=== PATIENT | female | born 1980 | race Two or more races ===

== ENCOUNTER 2018-06-30 17:33 | Emergency (ER) | payer OTHER ==
[~2018-06-30] VITALS: Ht 162.6 cm; Wt 67.7 kg
[~2018-06-30 17:33] MED LIST: NONE PER PT
[2018-06-30 17:37] VITALS: BP 127/95
== END 2018-06-30 18:38 | disposition home or self-care (01) ==
LOC: ED 18:27
DX: S16.1XXA Strain of muscle, fascia and tendon at neck level, initial encounter (principal); V47.5XXA Car driver injured in collision with fixed or stationary object in traffic accident, initial encounter; Y93.89 Activity, other specified; Y92.89 Other specified places as the place of occurrence of the external cause; Y99.8 Other external cause status
CPT/HCPCS: 99283